=== PATIENT | male | born 1950 | race Caucasian/White ===

== ENCOUNTER → 2018-12-03 07:03 | Outpatient (CLI) | payer MEDICARE, OTHER, SELFPAY ==
[2018-12-03 08:24] LABS: Alanine Aminotransferase 73 IU/L (21-72); Albumin 4.2 g/dL (3.5-5.0); Albumin Globulin Ratio 1.4 (1.0-2.8); Alkaline Phosphatase 86 U/L (38-126); Aspartate Aminotransferase 59 IU/L (17-59); Bilirubin Total 0.3 mg/dL (0.2-1.3); Blood Urea Nitrogen 24 mg/dL (9-20); Carbon Dioxide 27 mmol/L (22-32); Chloride 103 mmol/L (98-107); Estimated Glomerular Filt Rate > 60.0 mL/min (>60); Globulin 2.9 g/dL (1.7-4.1); Glucose 110 mg/dL (80-110); HDL Cholesterol 53 mg/dL (40-60); HEMOLYSIS < 15 (0-50); Potassium 4.7 mmol/L (3.4-5.1); Sodium 141 mmol/L (137-145); Total Protein 7.1 g/dL (6.3-8.2); Triglycerides 90 mg/dL (35-150)
[2018-12-03 08:35] LABS: Cholesterol 411 mg/dL (140-199); LDL Cholesterol Calculated 340 mg/dL (<100)
== END ==
PROVIDERS: PCP Family Medicine; Visit Provider Family Medicine
DX: E78.5 Hyperlipidemia, unspecified (principal); Z79.899 Other long term (current) drug therapy; Z12.5 Encounter for screening for malignant neoplasm of prostate; N40.0 Benign prostatic hyperplasia without lower urinary tract symptoms
CPT/HCPCS: 36415; 80053; 80061; 84153

== ENCOUNTER → 2018-12-09 14:57 | Outpatient (CLI) | payer MEDICARE, OTHER, SELFPAY ==
--- NOTE | 2018-12-09 15:05 | DI.ECHO.S_ITS ---
[facility] +---------+ : : [address] : [address] : : : : [place], : : : : [place] [id number] : : : : Phone: [phone] Echocardiogram Report + + :Name: JASKARAN DAVISON Study Date: 12/09/2018 Height: 70 in : :[facility] Exam Location: [facility] Weight: 213 lb: : Gender: Male BSA: 2.1 m2 : :: 1950 Age: 68 yrs BP: 15/75 mmHg: :Reason For Study: Murmur : :Ordering Physician: Dr. Chandler : :Huseyin Performed By: Francia Page : + + Interpretation Summary The left ventricle is normal in size, wall thickness, and systolic function without any focal wall motion abnormalities. The ejection fraction is estimated to be 65-70%. Diastolic parameters suggest a relaxation abnormality of the left ventricle, consistent with probable normal filling pressures. The right ventricle is normal in size and function. Pulmonary artery pressures cannot be estimated because of the lack of a measurable TR jet velocity. Both atria are normal in size. There is mild aortic regurgitation. There is no other significant valvular heart disease. The ascending aorta is mildly enlarged. Procedure: A two-dimensional transthoracic echocardiogram with color flow and Doppler was performed. The study quality was technically adequate. There is no prior echocardiogram noted for this patient. The patient was in normal sinus rhythm during the exam. Left Ventricle: The left ventricle is normal in size, wall thickness, and systolic function without any focal wall motion abnormalities. The ejection fraction is estimated to be 65-70%. Diastolic parameters suggest a relaxation abnormality of the left ventricle, consistent with probable normal filling pressures. Right Ventricle: The right ventricle is normal in size and function. Atria: Both atria are normal in size. There is no Doppler evidence for an interatrial shunt. Mitral Valve: The mitral valve is normal in structure and function. There is trace mitral regurgitation. Aortic Valve: The aortic valve is trileaflet. The aortic valve opens well. There is mild aortic regurgitation. Tricuspid Valve: The tricuspid valve is normal in structure and function. There is a trace or physiologic amount of tricuspid regurgitation. Pulmonary artery pressures cannot be estimated because of the lack of a measurable TR jet velocity. Pulmonic Valve: The pulmonic valve is not well visualized. There is a trace or physiologic amount of pulmonic regurgitation. There is no other significant valvular heart disease. Great Vessels: The aortic root is normal size. The ascending aorta is mildly enlarged. The pulmonary is not well visualized. The IVC is of normal diameter and collapses greater than 50% with a sniff. This suggests a low right atrial pressure of 3 mm Hg. Pericardium/ Pleura There is no pericardial effusion. There is no pleural effusion. MMode/2D Measurements & Calculations LVIDd: 4.1 cm AoV Openin.9 cm LVIDs: 2.7 cm LVOT diam: 2.3 cm IVSd: 1.0 cm Ao root diam: 3.6 cm LVPWd: 0.91 cm asc Aorta Diam: 3.6 cm LV knowles. diameter/BSA (cm/m^2): 1.9 LV sys. diameter/BSA (cm/m^2): 1.3 FS: 34.5 % EPSS: 0.06 cm LA A2 area: 20.2 cm2 RA long axis: 4.9 cm LA A4 area: 19.3 cm2 RA area: 17.3 cm2 LA length (vol): 5.3 cm RA vol: 51.7 ml LA vol: 62.7 ml RA : 24.1 ml/m2 LA vol index: 29.2 ml/m2 RVD1 (basal): 3.4 cm Doppler Measurements & Calculations Ao V2 max: 188.9 cm/sec LVOT Max Kuldeep: 96.5 cm/sec Ao V2 mean: 130.0 cm/sec LV V1 max P.7 mmHg Ao V2 VTI: 31.0 cm LV V1 VTI: 18.3 cm Ao max P.3 mmHg Ao mean P.6 mmHg JESSICA(I,D): 2.5 cm2 AI P1/2t: 556.4 msec JESSICA(V,D): 2.2 cm2 AI dec slope: 183.1 cm/sec2 JESSICA indexed to BSA (cm^2/m^2): 1.2 sev ratio: 0.59 MV E max kuldeep: 71.9 cm/sec MV dec time: 0.21 sec MV A max kuldeep: 83.0 cm/sec MV P1/2t: 60.2 msec MV E/A: 0.87 MVA(P1/2t): 3.7 cm2 Med Peak E' Kuldeep: 4.4 cm/sec E/E' med: 16.2 Lat Peak E' Kuldeep: 6.8 cm/sec E/E' lat: 10.6 E/e' average: 13.4 PA V2 max: 80.2 cm/sec SV(LVOT): 78.0 ml PA V2 mean: 53.8 cm/sec PA mean P.3 mmHg PA Accel Time: 0.12 sec Reading Physician:SHIRA
== END ==
PROVIDERS: PCP Family Medicine; Visit Provider Family Medicine
DX: I35.1 Nonrheumatic aortic (valve) insufficiency (principal); I77.810 Thoracic aortic ectasia; R01.1 Cardiac murmur, unspecified
CPT/HCPCS: 93306

== ENCOUNTER → 2019-02-15 07:50 | Outpatient (CLI) | payer MEDICARE, OTHER, SELFPAY ==
[2019-02-15 10:46] LABS: Triglycerides 106 mg/dL (35-150)
[2019-02-15 10:53] LABS: Cholesterol 337 mg/dL (140-199); HDL Cholesterol 50 mg/dL (40-60); LDL Cholesterol Calculated 266 mg/dL (<100)
== END ==
PROVIDERS: PCP Family Medicine; Visit Provider Family Medicine
DX: E78.2 Mixed hyperlipidemia (principal)
CPT/HCPCS: 36415; 80061

== ENCOUNTER → 2019-07-14 07:12 | Outpatient (CLI) | payer MEDICARE, OTHER, SELFPAY ==
[2019-07-14 08:36] LABS: Cholesterol 313 mg/dL (140-199); HDL Cholesterol 53 mg/dL (40-60); LDL Cholesterol Calculated 238 mg/dL (<100); Triglycerides 110 mg/dL (35-150)
== END ==
PROVIDERS: PCP Family Medicine; Visit Provider Family Medicine
DX: E78.2 Mixed hyperlipidemia (principal)
CPT/HCPCS: 36415; 80061

== ENCOUNTER → 2019-10-26 07:22 | Outpatient (CLI) | payer MEDICARE, OTHER, SELFPAY ==
[2019-10-26 08:15] LABS: Alanine Aminotransferase 27 IU/L (<50); Albumin 4.1 g/dL (3.5-5.0); Albumin Globulin Ratio 1.6 (1.0-2.8); Alkaline Phosphatase 54 U/L (38-126); Aspartate Aminotransferase 33 IU/L (17-59); Bilirubin Total 0.5 mg/dL (0.2-1.3); Bilirubin Unconjugated 0.3 mg/dL (0.0-1.1); Cholesterol 244 mg/dL (140-199); Globulin 2.6 g/dL (1.7-4.1); HDL Cholesterol 49 mg/dL (40-60); HEMOLYSIS < 15 (0-50); LDL Cholesterol Calculated 183 mg/dL (<100); Total Protein 6.7 g/dL (6.3-8.2); Triglycerides 58 mg/dL (35-150)
== END ==
PROVIDERS: Family Provider Family Medicine; PCP Family Medicine; Visit Provider Nurse Practitioner
DX: Z51.81 Encounter for therapeutic drug level monitoring (principal); T50.905A Adverse effect of unspecified drugs, medicaments and biological substances, initial encounter; E78.2 Mixed hyperlipidemia
CPT/HCPCS: 36415; 80061; 80076

== ENCOUNTER → 2019-12-24 07:18 | Outpatient (CLI) | payer MEDICARE, OTHER, SELFPAY ==
[2019-12-24 08:06] LABS: Add Manual Diff / Slide Review NO; Basophils Absolute Auto 0 /uL (0-100); Basophils Percent Auto 0.8 % (0-2); Eosinophils Absolute Auto 200 /uL (0-450); Eosinophils Percent Auto 3.6 % (2-4); Hematocrit 44.3 % (41-53); Hemoglobin 14.9 g/dL (13.5-17.5); Lymphocytes Absolute Auto 1700 /uL (1100-4500); Lymphocytes Percent Auto 31.5 % (25-40); Mean Corpuscular HGB Conc 33.6 % (30-36); Mean Corpuscular Hemoglobin 30.6 PG (26-34); Mean Corpuscular Volume 90.8 fL (80-100); Monocytes Absolute Auto 600 /uL (0-900); Monocytes Percent Auto 11.7 % (3-14); Neutrophils Absolute Auto 2800 /uL (1500-7000); Neutrophils Percent Auto 52.4 % (50-75); Platelet Count 230 X10^3/uL (150-400); Red Blood Cell Count 4.88 X10^6/uL (4.5-5.9); Red Cell Distribution Width 13.6 % (11.6-14.8); White Blood Cell Count 5.3 X10^3/uL (4.5-11.0)
[2019-12-24 08:32] LABS: Alanine Aminotransferase 25 IU/L (<50); Albumin 4.4 g/dL (3.5-5.0); Albumin Globulin Ratio 1.6 (1.0-2.8); Alkaline Phosphatase 57 U/L (38-126); Aspartate Aminotransferase 28 IU/L (17-59); BUN Creatinine Ratio 25.6 (6-22); Bilirubin Total 0.5 mg/dL (0.2-1.3); Blood Urea Nitrogen 23 mg/dL (9-20); Calcium 9.7 mg/dL (8.4-10.2); Carbon Dioxide 27 mmol/L (22-32); Chloride 104 mmol/L (98-107); Cholesterol 267 mg/dL (140-199); Estimated Glomerular Filt Rate > 60.0 mL/min (>60); Globulin 2.7 g/dL (1.7-4.1); Glucose 112 mg/dL (80-110); HDL Cholesterol 45 mg/dL (40-60); HEMOLYSIS < 15 (0-50); LDL Cholesterol Calculated 205 mg/dL (<100); Potassium 4.3 mmol/L (3.4-5.1); Sodium 141 mmol/L (137-145); Total Protein 7.1 g/dL (6.3-8.2); Triglycerides 85 mg/dL (35-150)
[2019-12-24 09:02] LABS: Prostate Specific Antigen Scrn 1.99 ng/mL (0.1-4.0)
== END ==
PROVIDERS: PCP Family Medicine; Visit Provider Family Medicine
DX: E78.2 Mixed hyperlipidemia (principal); Z12.5 Encounter for screening for malignant neoplasm of prostate
CPT/HCPCS: 36415; 80053; 80061; 85025; G0103

== ENCOUNTER → 2020-06-25 09:15 | Outpatient (CLI) | payer MEDICARE, OTHER, SELFPAY ==
[2020-06-27 13:43] LABS: COVID19 Sendout Not Detected (Not Detect)
== END ==
PROVIDERS: PCP Family Medicine; Visit Provider Physician Assistant
DX: Z01.818 Encounter for other preprocedural examination (principal)
CPT/HCPCS: 87635

== ENCOUNTER 2020-06-28 08:06 | Day surgery (SDC) | payer MEDICARE, OTHER, SELFPAY ==
[2020-06-26 14:51] VITALS: BMI 31.8
[2020-06-28] VITALS (7 sets, daily range): BP systolic 104–125; BP diastolic 59–74; PULSE 62–80; RESP 14–17; TEMP 36.1–36.5; O2SAT 97–100; BMI 30.4
--- NOTE | 2020-06-28 | PATH_ITS ---
[facility] Accession Number: [id number] . 01 Material submitted: . leg - LEFT LEG CHRONIC WOUND . 01 Clinical history: . A: LEFT LEG CHRONIC WOUND/ RECURRENT DERMATOFIBROMA SINGLE STITCH SUPERIOR DOUBLE STITCH POSTERIOR . 01 Diagnosis: Skin and Subcutis, Left Leg, Excision: Scar. Negative for residual dermatofibroma. Negative for malignancy. V 07/03/2020 1636 Local . 01 Comment: This case is also reviewed by dermatopathologist, Dr. Bala Palencia, who concurs with the given interpretation. . . . . 01 Electronically signed: . Thelma Berry MD, Pathologist NPI- [id number] . 01 Gross description: . Specimen A is received in formalin, labeled with patient identification and left leg chronic wound/recurrent dermatofibroma, single stitch superior, double stitch posterior. It consists of a 6.3 x 2.0 x 0.6 cm ellipse of yellow-chester and wrinkled skin excisions with a single superior stitch and double posterior stitch (per surgeon). For grossing purposes, superior is designated as 12 o'clock tip and posterior side is designated as 9 o'clock side. A 0.7 x 0.5 cm irregular skin defect is present at 0.2 cm to 3 o'clock side, 1.1 cm to 9 o'clock side, 2.8 cm to 12 o'clock tip, and 3.0 cm to 6 o'clock tip. Ink code: orange-12 to 3 o'clock; blue-3 to 6 o'clock; black-6 to 9 to 12 o'clock. Sectioning reveals white to yellow-chester and smooth cut surfaces. The entire specimen is submitted in six cassettes. . Summary of sections: A1 - 12 o'clock and 6 o'clock tips, two pieces. A2-A6 - the remaining specimen, continuatively submitted from 12 o'clock to 6 o'clock, three pieces each. ([id number]) /MRV 06/29/2020 1334 Local . 01 Pathologist provided ICD-10: D23.9 . 01 CPT . 989719 Performed at: 01 [facility] [address] [place] [address], [place], [place] [id number] MD Ran Hernandez MD Phone: [phone]
[2020-06-28] MEDS: LACTATED RINGERS 1,000 ML 100 ML IV (08:41)
--- NOTE | 2020-06-28 09:36 | PM.PREOP ---
Pre-operative Note COVID-19 COVID-19 status: Negative Result date/Date tested (Pos, Neg/Pending): 06/25/20 Interval Note History & Physical reviewed/Exam performed by Physician: Yes Changes to H&P: No
[2020-06-28] MEDS: CEFAZOLIN 2 GM/100 ML FROZ.PIGGY IV (10:02)
--- NOTE | 2020-06-28 10:12 | SUR.OPER ---
Lateral on padded OR bed, head on pillow, gel axillary roll in place, bottom leg bent with gel pad under knee to foot, upper leg straight and supported with pillows. Upper arm supported by pillows and secured over bottom arm to padded arm board. Safety belt at hip, tape over blanket lower legs. lateral on collier bag
[2020-06-28] MEDS: BUPIVACAINE 0.25% W/ EPI 30 ML VIAL INJ (10:27)
--- NOTE | 2020-06-28 10:48 | P.OP_ITS ---
Operative Date/Time/Diagnoses Date of procedure: 06/28/20 Time of procedure: 10:48 Pre-op diagnosis: recurrent dermatofibroma; non healing chronic wound Post-op diagnosis: same Procedure & Clinicians Procedure: Excision of 2cm x 1cm recurrent dermatofibroma with associated skin for closure 6cm x 2.5 cm Same procedure as scheduled: Yes Indications: This is a 69 yo man who had a hypertrophic mass on his left leg which was biopsied and subsequently excised. Pathology was consistent with dermatofibroma. The hypetrophic mass immediately recurred with an area of central ulceration which continues to reopen and seems to resist healing. Re- biopsy was discussed, vs re-excision. The patient preferred re-excision and this was recommended for healing the chronic wound and full pathology of the recurrent mass. Surgeon: Rona Meyer Click Yes if Unassisted: Yes Anesthesia Type: General Operative Notes Findings: Deep scar with non healing ulcer Closure Type: primary Specimen(s): other (Recurrent dermatofibroma with non healing ulcer; single stitch superior; double stitch posterior; rule out malignancy) Estimated Blood Loss (mL): 1 Blood products transfused: none Procedure in detail: The patient was brought into the OR, identified and positioned on his left side on the OR table with all bony prominences padded. General anesthesia was induced and the patient was intubated with an LMA. The left medial leg was prepped and draped in sterile fashion with the area of the planned excision marked out. Surgical timeout was conducted. Local anesthetic was infiltrated under the skin, and a modified elliptical incision was made encompassing the area of concern with a 1-2mm margin for a total of 6cm x 2.5cm. Dissection was carried down through the dermis and the skin ellipse was dissected free from the underlying subcutaneous fat. There was deep scar tissue at the prior surgical site which was excised with a rim of fat tissue. The entire specimen was excised and marked with single suture at the superior end and double suture at the posterior edge. The wound was infiltrated with a total of 30mL of local anesthetic using 0.25% Marcaine with epi. The skin was closed in layers with interrupted 3-0 Vicryl and running 4-0 Monocryl. The skin was sealed with dermabond and secured with steri strips. At the conclusion of the procedure, needle, sponge and instrument counts were correct x 2. The patient was then awakened from anesthesia and extubated. He was transferred to the PACU in stable condition. Complications: none Post-operative Condition: stable Disposition: PACU
== END 2020-06-28 11:30 | disposition home or self-care (01) ==
PROVIDERS: PCP Family Medicine; Referring Provider Surgery; Visit Provider Surgery
PROC: (CPT 11406; principal; 2020-06-28 09:45)
DX: D23.72 Other benign neoplasm of skin of left lower limb, including hip (principal)
CPT/HCPCS: 11406; J0690; J2405; J2704; J3010

== ENCOUNTER → 2020-07-05 07:04 | Outpatient (CLI) | payer MEDICARE, OTHER, SELFPAY ==
[2020-07-05 08:37] LABS: Cholesterol 263 mg/dL (140-199); HDL Cholesterol 50 mg/dL (40-60); LDL Cholesterol Calculated 185 mg/dL (<100); Triglycerides 141 mg/dL (35-150)
[2020-07-05 08:59] LABS: Prostate Specific Antigen 1.63 ng/mL (0.10-4.00)
== END ==
PROVIDERS: PCP Family Medicine; Referring Provider Physician Assistant; Visit Provider Family Medicine
DX: N40.1 Benign prostatic hyperplasia with lower urinary tract symptoms (principal); E78.2 Mixed hyperlipidemia
CPT/HCPCS: 36415; 80061; 84153

== ENCOUNTER → 2020-12-27 07:00 | Outpatient (CLI) | payer MEDICARE, OTHER, SELFPAY ==
[2020-12-27 08:18] LABS: Add Manual Diff / Slide Review NO; Basophils Absolute Auto 0 /uL (0-100); Basophils Percent Auto 0.9 % (0-2); Eosinophils Absolute Auto 200 /uL (0-450); Hemoglobin 14.1 g/dL (13.5-17.5); Lymphocytes Absolute Auto 1800 /uL (1100-4500); Lymphocytes Percent Auto 33.7 % (25-40); Mean Corpuscular HGB Conc 32.1 % (30-36); Mean Corpuscular Hemoglobin 29.7 PG (26-34); Mean Corpuscular Volume 92.5 fL (80-100); Monocytes Absolute Auto 600 /uL (0-900); Monocytes Percent Auto 11.2 % (3-14); Neutrophils Absolute Auto 2700 /uL (1500-7000); Neutrophils Percent Auto 50.2 % (50-75); Platelet Count 223 X10^3/uL (150-400); Red Blood Cell Count 4.75 X10^6/uL (4.5-5.9); Red Cell Distribution Width 13.7 % (11.6-14.8); White Blood Cell Count 5.3 X10^3/uL (4.5-11.0)
[2020-12-27 08:44] LABS: Alanine Aminotransferase 19 IU/L (<50); Albumin 4.1 g/dL (3.5-5.0); Albumin Globulin Ratio 1.6 (1.0-2.8); Alkaline Phosphatase 53 U/L (38-126); Aspartate Aminotransferase 25 IU/L (17-59); BUN Creatinine Ratio 22.5 (6-22); Bilirubin Total 0.4 mg/dL (0.2-1.3); Blood Urea Nitrogen 20 mg/dL (9-20); Calcium 9.4 mg/dL (8.4-10.2); Carbon Dioxide 31 mmol/L (22-32); Chloride 106 mmol/L (98-107); Cholesterol 260 mg/dL (140-199); Estimated Glomerular Filt Rate > 60.0 mL/min (>60); Globulin 2.6 g/dL (1.7-4.1); Glucose 113 mg/dL (80-110); HDL Cholesterol 54 mg/dL (40-60); HEMOLYSIS < 15 (0-50); LDL Cholesterol Calculated 188 mg/dL (<100); Potassium 4.3 mmol/L (3.4-5.1); Sodium 139 mmol/L (137-145); Total Protein 6.7 g/dL (6.3-8.2); Triglycerides 89 mg/dL (35-150)
[2020-12-27 09:06] LABS: Prostate Specific Antigen Scrn 2.14 ng/mL (0.1-4.0)
[2020-12-27 09:07] LABS: TSH w/ Reflex to FT4 2.91 uIU/mL (0.47-4.68)
== END ==
PROVIDERS: PCP Family Medicine; Referring Provider Family Medicine; Visit Provider Family Medicine
DX: E78.2 Mixed hyperlipidemia (principal); Z12.5 Encounter for screening for malignant neoplasm of prostate; Z13.228 Encounter for screening for other metabolic disorders; Z13.29 Encounter for screening for other suspected endocrine disorder
CPT/HCPCS: 36415; 80053; 80061; 84443; 85025; G0103

== ENCOUNTER → 2021-04-26 08:21 | Outpatient (CLI) | payer MEDICARE, OTHER, SELFPAY | PROVIDERS: Family Provider Family Medicine; PCP Family Medicine; Referring Provider Family Medicine; Visit Provider Family Medicine | DX: G56.91 Unspecified mononeuropathy of right upper limb (principal) | CPT/HCPCS: 95886; 95910 ==

== ENCOUNTER → 2021-09-29 07:59 | Outpatient (CLI) | payer MEDICARE, OTHER, SELFPAY ==
[2021-09-29 09:27] LABS: Alanine Aminotransferase 20 IU/L (<50); Albumin 4.4 g/dL (3.5-5.0); Albumin Globulin Ratio 1.8 (1.0-2.8); Alkaline Phosphatase 58 U/L (38-126); Aspartate Aminotransferase 23 IU/L (17-59); BUN Creatinine Ratio 20.4 (6-22); Bilirubin Total 0.6 mg/dL (0.2-1.3); Blood Urea Nitrogen 22 mg/dL (9-20); Calcium 10.1 mg/dL (8.4-10.2); Carbon Dioxide 31 mmol/L (22-32); Chloride 102 mmol/L (98-107); Cholesterol 270 mg/dL (140-199); Estimated Glomerular Filt Rate > 60.0 mL/min (>60); Globulin 2.4 g/dL (1.7-4.1); Glucose 105 mg/dL (80-110); HDL Cholesterol 52 mg/dL (40-60); HEMOLYSIS < 15 (0-50); LDL Cholesterol Calculated 188 mg/dL (<100); Potassium 5.1 mmol/L (3.4-5.1); Sodium 140 mmol/L (137-145); Total Protein 6.8 g/dL (6.3-8.2); Triglycerides 150 mg/dL (35-150)
[2021-09-29 09:29] LABS: Hemoglobin A1C% w Est Avg Glu 5.7 % (4.0-6.0)
== END ==
PROVIDERS: Family Provider Family Medicine; PCP Family Medicine; Referring Provider Family Medicine; Visit Provider Family Medicine
DX: E78.2 Mixed hyperlipidemia (principal); R73.9 Hyperglycemia, unspecified
CPT/HCPCS: 36415; 80053; 80061; 83036

== ENCOUNTER → 2021-10-12 11:35 | Outpatient (CLI) | payer MEDICARE, OTHER, SELFPAY ==
[2021-10-12] MEDS: COVID-19 VACC #3, MRNA(MOD) 50 MCG/0.25 ML VIAL IM (11:39)
== END ==
PROVIDERS: Family Provider Family Medicine; PCP Family Medicine; Visit Provider Internal Medicine
DX: Z23 Encounter for immunization (principal)
CPT/HCPCS: 0013A; 91301

== ENCOUNTER 2022-05-30 08:30 | Outpatient (RCR) | payer MEDICARE, OTHER, SELFPAY | END 2022-05-30 12:30 | LOC: CAR 08:30 | PROVIDERS: Family Provider Family Medicine; PCP Family Medicine; Referring Provider Internal Medicine Interventional Cardiology; Visit Provider Internal Medicine Interventional Cardiology | DX: I21.4 Non-ST elevation (NSTEMI) myocardial infarction (principal) | CPT/HCPCS: 93798 ==

== ENCOUNTER → 2022-11-28 07:02 | Outpatient (CLI) | payer MEDICARE, OTHER, SELFPAY ==
[2022-11-28 08:16] LABS: Add Manual Diff / Slide Review NO; Basophils Absolute Auto 0 /uL (0-100); Basophils Percent Auto 0.9 % (0-2); Eosinophils Absolute Auto 200 /uL (0-450); Hematocrit 42.8 % (41-53); Hemoglobin 14.4 g/dL (13.5-17.5); Lymphocytes Absolute Auto 1300 /uL (1100-4500); Lymphocytes Percent Auto 27.7 % (25-40); Mean Corpuscular HGB Conc 33.7 % (30-36); Mean Corpuscular Hemoglobin 30.7 PG (26-34); Monocytes Absolute Auto 600 /uL (0-900); Monocytes Percent Auto 11.7 % (3-14); Neutrophils Absolute Auto 2600 /uL (1500-7000); Neutrophils Percent Auto 54.7 % (50-75); Platelet Count 191 X10^3/uL (150-400); Red Cell Distribution Width 13.6 % (11.6-14.8); White Blood Cell Count 4.8 X10^3/uL (4.5-11.0)
[2022-11-28 08:46] LABS: BUN Creatinine Ratio 19.1 (6-22); Blood Urea Nitrogen 18 mg/dL (9-20); Calcium 9.4 mg/dL (8.4-10.2); Carbon Dioxide 28 mmol/L (22-32); Chloride 102 mmol/L (98-107); Cholesterol 227 mg/dL (140-199); Estimated Glomerular Filt Rate > 60 mL/min (>60); Glucose 105 mg/dL (80-110); HDL Cholesterol 59 mg/dL (40-60); HEMOLYSIS < 15 (0-50); LDL Cholesterol Calculated 145 mg/dL (<100); Potassium 4.5 mmol/L (3.4-5.1); Sodium 139 mmol/L (137-145); Triglycerides 114 mg/dL (35-150)
[2022-12-03 13:36] LABS: Lipoprotein (a) 155.8 nmol/L (<75.0)
== END ==
PROVIDERS: Family Provider Family Medicine; PCP Family Medicine; Referring Provider Internal Medicine Cardiovascular Disease; Visit Provider Internal Medicine Cardiovascular Disease
DX: E78.5 Hyperlipidemia, unspecified (principal); I25.10 Atherosclerotic heart disease of native coronary artery without angina pectoris
CPT/HCPCS: 36415; 80048; 80061; 83695; 85025

== ENCOUNTER → 2022-12-06 15:04 | Outpatient (CLI) | payer MEDICARE, OTHER, SELFPAY ==
[2022-12-06 17:47] LABS: Prostate Specific Antigen 1.66 ng/mL (0.10-4.00)
== END ==
PROVIDERS: Family Provider Family Medicine; PCP Family Medicine; Referring Provider Family Medicine; Visit Provider Family Medicine
DX: Z00.00 Encounter for general adult medical examination without abnormal findings (principal); N40.1 Benign prostatic hyperplasia with lower urinary tract symptoms; R39.11 Hesitancy of micturition
CPT/HCPCS: 36415; 84153

== ENCOUNTER → 2023-03-24 06:47 | Outpatient (CLI) | payer MEDICARE, OTHER, SELFPAY ==
[2023-03-24 09:22] LABS: Cholesterol 119 mg/dL (140-199); HDL Cholesterol 58 mg/dL (40-60); LDL Cholesterol Calculated 44 mg/dL (<100); Triglycerides 85 mg/dL (35-150)
== END ==
PROVIDERS: Family Provider Family Medicine; PCP Family Medicine; Referring Provider Internal Medicine Cardiovascular Disease; Visit Provider Internal Medicine Cardiovascular Disease
DX: E78.5 Hyperlipidemia, unspecified (principal)
CPT/HCPCS: 36415; 80061

== ENCOUNTER → 2023-05-28 15:51 | Outpatient (CLI) | payer MEDICARE, OTHER, SELFPAY ==
--- NOTE | 2023-05-28 15:53 | DI.RAD.S_ITS ---
PROCEDURE: XR KNEE RT 3V INDICATIONS: knee pain TECHNIQUE: Three views of the knee were acquired. COMPARISON: None. FINDINGS: Bones: No acute fractures or dislocations. No suspicious bony lesions. There is moderate joint space narrowing at the patellofemoral compartment with subchondral sclerosis, subchondral cystic changes, marginal osteophyte formation. A small suprapatellar enthesophyte is seen. Medial and lateral femorotibial compartment joint spaces are within normal limits. Soft tissues: No joint effusion. No suspicious soft tissue calcifications. IMPRESSION: Moderate patellofemoral osteoarthrosis. Approved by: Julian Locke M.D. on 05/28/2023 at 20:25
== END ==
PROVIDERS: Family Provider Family Medicine; PCP Family Medicine; Referring Provider Nurse Practitioner Family; Visit Provider Nurse Practitioner Family
DX: M17.11 Unilateral primary osteoarthritis, right knee (principal); M25.561 Pain in right knee
CPT/HCPCS: 73562

== ENCOUNTER → 2023-06-25 11:44 | Outpatient (CLI) | payer MEDICARE, OTHER, SELFPAY ==
--- NOTE | 2023-06-25 11:45 | DI.RAD.S_ITS ---
PROCEDURE: XR LUMBAR SPINE MIN 4V INDICATIONS: LOW BACK PAIN TECHNIQUE: 5 views of the lumbar spine were acquired, including bilateral oblique views. COMPARISON: None. FINDINGS: Bones: 5 nonrib-bearing vertebrae are present. There is normal bony alignment. No vertebral body compression fractures. No suspicious bony lesions. Disc space narrowing hypertrophic facet joints present in the lower lumbar spine Soft tissues: Overlying bowel gas pattern is normal. No suspicious soft tissue calcifications. Moderate fecal debris in the right colon Oblique images: No pars defects. IMPRESSION: Degenerative disc disease and arthropathy in the lower lumbar spine. Moderate fecal debris in the right colon Approved by: German Kumar M.D. on 06/25/2023 at 19:38
== END ==
PROVIDERS: Family Provider Family Medicine; PCP Family Medicine; Referring Provider Physical Medicine & Rehabilitation; Visit Provider Physical Medicine & Rehabilitation
DX: M51.36 Other intervertebral disc degeneration, lumbar region (principal); M47.816 Spondylosis without myelopathy or radiculopathy, lumbar region; M54.50 Low back pain, unspecified
CPT/HCPCS: 72110

== ENCOUNTER → 2023-09-25 11:10 | Outpatient (CLI) | payer MEDICARE, OTHER, SELFPAY ==
--- NOTE | 2023-09-25 11:12 | DI.MRI.S_ITS ---
PROCEDURE: MR LUMBAR SPINE WO CON INDICATIONS: Lumbar stenosis left lower extremity radiculopathy TECHNIQUE: Noncontrast sagittal T1 spin echo and T2 fast echo, sagittal STIR, and T2 fast spin echo through the lumbar spine. In cases with scoliosis, additional coronal T2 fast spin echo may be performed. COMPARISON: None. FINDINGS: Image quality: Excellent. Alignment and Curvature: There is normal bony alignment. Bone Marrow: Multilevel reactive endplate changes are present most severe at L5-S1 and L4-5. Spinal Cord: Conus medullaris terminates at the L1 level. Visualized cord demonstrates normal signal and size. Paraspinous Soft Tissues: No paravertebral masses. T12-L1: Disc height is preserved. No canal stenosis. No foraminal stenosis. L1-L2: Mild disc desiccation. Mild facet ligamentum flavum hypertrophy. No canal stenosis. No foraminal stenosis. L2-L3: Moderate facet ligamentum flavum hypertrophy. No canal stenosis. Mild right and moderate left neural foraminal stenosis. L3-L4: Severe disc desiccation and height loss. Broad-based disc bulge. Epidural lipomatosis. Severe facet and ligamentum flavum hypertrophy. Severe canal stenosis. Mild bilateral foraminal stenosis. There is a small posterior focal high-intensity zone present. L4-L5: Severe disc desiccation and height loss. Severe reactive endplate changes. Severe facet ligamentum flavum hypertrophy. Epidural lipomatosis. Severe canal stenosis. Moderate bilateral foraminal stenosis. Small posterior focal high-intensity zone is present. L5-S1: Severe disc desiccation and height loss. Severe reactive endplate changes. Epidural lipomatosis. Severe facet ligamentum flavum hypertrophy. Moderate canal stenosis. Moderate right and severe left foraminal stenosis. IMPRESSION: 1. Disc desiccation and height loss throughout the lumbar spine and reactive endplate changes most severe at L4-5 and L5-S1. 2. Multilevel broad-based disc bulges with facet and ligamentum flavum hypertrophy. These findings in combination with epidural lipomatosis result in severe canal stenosis at L3-4, L4-5, and L5-S1. 3. Posterior annular fibrosis tears at L3-4, L4-5, and L5-S1. 4. Moderate bilateral foraminal stenosis at L4-5, moderate right stenosis at L5-S1 and severe left foraminal stenosis at L5-S1. Dictated by: Aditi Panda M.D. on 09/25/2023 at 12:56 Approved by: Aditi Panda M.D. on 09/25/2023 at 13:02
== END ==
PROVIDERS: Family Provider Family Medicine; PCP Family Medicine; Referring Provider Physical Medicine & Rehabilitation; Visit Provider Physical Medicine & Rehabilitation
DX: M51.16 Intervertebral disc disorders with radiculopathy, lumbar region (principal); M48.061 Spinal stenosis, lumbar region without neurogenic claudication; M48.07 Spinal stenosis, lumbosacral region; M47.26 Other spondylosis with radiculopathy, lumbar region; M47.27 Other spondylosis with radiculopathy, lumbosacral region
CPT/HCPCS: 72148

== ENCOUNTER → 2023-10-29 06:58 | Outpatient (CLI) | payer MEDICARE, OTHER, SELFPAY ==
[2023-10-29 08:02] LABS: Add Manual Diff / Slide Review NO; Basophils Absolute Auto 0 /uL (0-100); Basophils Percent Auto 0.7 % (0-2); Eosinophils Absolute Auto 300 /uL (0-450); Hematocrit 41.9 % (41-53); Lymphocytes Absolute Auto 1600 /uL (1100-4500); Lymphocytes Percent Auto 30.6 % (25-40); Mean Corpuscular HGB Conc 33.5 % (30-36); Mean Corpuscular Volume 92.6 fL (80-100); Monocytes Absolute Auto 600 /uL (0-900); Neutrophils Absolute Auto 2800 /uL (1500-7000); Neutrophils Percent Auto 52.7 % (50-75); Platelet Count 231 X10^3/uL (150-400); Red Blood Cell Count 4.53 X10^6/uL (4.5-5.9); Red Cell Distribution Width 13.5 % (11.6-14.8); White Blood Cell Count 5.3 X10^3/uL (4.5-11.0)
[2023-10-29 08:23] LABS: BUN Creatinine Ratio 28.4 (6-22); Blood Urea Nitrogen 25 mg/dL (9-20); Calcium 10.1 mg/dL (8.4-10.2); Carbon Dioxide 27 mmol/L (22-32); Chloride 104 mmol/L (98-107); Cholesterol 279 mg/dL (140-199); Estimated Glomerular Filt Rate > 60 mL/min (>60); Glucose 108 mg/dL (80-110); HDL Cholesterol 53 mg/dL (40-60); HEMOLYSIS < 15 (0-50); LDL Cholesterol Calculated 199 mg/dL (<100); Potassium 4.8 mmol/L (3.4-5.1); Sodium 138 mmol/L (137-145); Triglycerides 134 mg/dL (35-150)
[2023-11-01 05:13] LABS: Lipoprotein (a) 99.6 nmol/L (<75.0)
== END ==
PROVIDERS: Family Provider Family Medicine; PCP Family Medicine; Referring Provider Internal Medicine Cardiovascular Disease; Visit Provider Internal Medicine Cardiovascular Disease
DX: I25.10 Atherosclerotic heart disease of native coronary artery without angina pectoris (principal); E78.5 Hyperlipidemia, unspecified
CPT/HCPCS: 36415; 80048; 80061; 83695; 85025

== ENCOUNTER → 2023-10-30 08:05 | Outpatient (CLI) | payer MEDICARE, OTHER, SELFPAY | PROVIDERS: Family Provider Family Medicine; PCP Family Medicine; Referring Provider Physical Medicine & Rehabilitation; Visit Provider Physical Medicine & Rehabilitation | DX: R29.898 Other symptoms and signs involving the musculoskeletal system (principal) | CPT/HCPCS: 95886; 95910 ==

== ENCOUNTER 2023-12-02 08:04 | Day surgery (SDC) | payer MEDICARE, OTHER, SELFPAY ==
[2023-12-02 08:31] VITALS: BP 148/88; PULSE 99; RESP 16; TEMP 36.4; O2SAT 98; BMI 30.1
[2023-12-02] MEDS: LACTATED RINGERS 1,000 ML 42 ML IV (08:47)
--- NOTE | 2023-12-02 09:06 | P.HP_ITS ---
History of Present Illness History of Present Illness Date Patient Seen: 12/02/23 Time Patient Seen: 09:06 Chief complaint: SDC Narrative: 73-year-old man personal history of colonic polyps here for screening colonoscopy. Last colonoscopy 10 years ago. No family history of intestinal malignancy. No abdominal concerns today. [facility] Medical History Spinal stenosis, lumbar region with neurogenic claudication Right knee DJD CAD (coronary artery disease) Erectile disorder Right hand weakness Acute pain of right knee Stable angina Plantar wart Hyperglycemia Neuropathy of right upper extremity Well adult exam Vision changes Erectile dysfunction Insomnia MRSA (methicillin resistant Staphylococcus aureus) Dermatofibroma Mixed hyperlipidemia (08/15/16) Kidney stone Surgical History Status post colonoscopy Status post transurethral resection of prostate Family History Brother Hx of CABG Father Heart disease Mother Heart disease High cholesterol Social History marital status: household members: spouse Smoking Status: Never smoker alcohol intake: former substance use type: former substance user and marijuana Meds Home Medications and Allergies Home Medications Medication Instructions Recorded Confirmed Type aspirin 81 mg chewable tablet 1 tab PO DAILY 12/11/21 12/02/23 History carvedilol 3.125 mg tablet 3.125 mg PO DAILY 12/11/21 12/02/23 History nitroglycerin 0.4 mg sublingual 0.4 mg sublingual Q5M PRN chest 12/11/21 12/02/23 Rx tablet pain #30 tabs rosuvastatin 40 mg tablet 40 mg PO DAILY 12/11/21 12/02/23 History tamsulosin 0.4 mg capsule 0.8 mg (2 x 0.4 mg) PO BEDTIME 10/03/22 12/02/23 Rx #180 caps sildenafil 100 mg tablet 100 mg PO DAILY PRN sexual 06/27/23 12/02/23 Rx activity #30 tabs evolocumab 140 mg/mL subcutaneous 140 mg SUBCUT QMONTH 09/17/23 12/02/23 History pen injector (Naye Montenegro) zolpidem 10 mg tablet See Rx Instructions .Route 10/04/23 12/02/23 Rx .COMPLEX #30 tabs celecoxib 200 mg capsule (Celebrex) 200 mg PO DAILY Pain 12/02/23 12/02/23 History Allergies Allergy/AdvReac Type Severity Reaction Status Date / Time No Known Drug Allergies Allergy Verified 09/17/23 08:13 Exam Vital Signs (past 8 hours): - 12/02/23 08:31 Temperature 97.6 F Pulse Rate 99 H Respiratory Rate 16 Blood Pressure 148/88 H Pulse Oximetry 98 Oxygen Delivery Method Room Air Oxygen Delivery Method Room Air Narrative Exam Narrative: General adult man alert oriented no acute distress Chest nonlabored respiration Extremities warm well perfused Assessment & Plan Assessment & Plan narrative: The patient requires colorectal screening and colonoscopy is recommended. Technical details were discussed. Risks, benefits, alternatives explained. Risks including but not limited to myocardial infarction, aspiration, bleeding, pain, missed lesion, incomplete examination, need for further radiographic studies, colonic perforation, and need for major abdominal surgery were discussed. All questions were answered to their satisfaction, and they are in agreement with this plan.
[2023-12-02 09:34] VITALS: BP 93/63; PULSE 83; RESP 22; TEMP 36.7; O2SAT 94
[2023-12-02 09:39] VITALS: BP 104/69; PULSE 75; RESP 21; O2SAT 95
--- NOTE | 2023-12-02 09:40 | P.OP.COLON_ITS ---
Operative Date/Time/Diagnoses Date of procedure: 12/02/23 Time of procedure: 09:40 Pre-op diagnosis: Personal history of colonic polyps Post-op diagnosis: same Procedure & Clinicians Study performed: Colonoscopy Same procedure as scheduled: Yes Indications: Personal history of colonic polyps Colorectal screening Surgeon: Tee Coronado Procedure Notes Procedure in detail: The history and physical was performed/updated and the patient is ASA class is 2. The procedure was discussed in detail with the patient. Potential risks complications including infection, bleeding, missed diagnosis, perforation, need for surgery, and were explained. Their questions were answered and informed consent was obtained. Patient was brought to the procedure room and placed standard monitoring equipment. The patient's vital signs were monitored continuously throughout the entire procedure. Prior to starting time-out was performed. The patient was placed in the left lateral recumbent position. Procedural sedation was administered by anesthesia. Examination began with a thorough inspection of the perianal area there was no evidence of fissures, fistulae, external hemorrhoids or cutaneous malignancy. The colonoscopy scope was then placed into the anal canal and was advanced to the cecum, which was identified by the ileocecal valve, the appendiceal orifice and the confluence of the taenia. The scope was then slowly withdrawn examining colon thoroughly in all directions, irrigating it of any residual stool. The scope was retroflexed within the rectum The patient tolerated the procedure well. They will be discharged once criteria are met. The prep was of good/excellent quality. The withdrawl time was 7 minutes. FINDINGS * No masses or polyps * Diverticulosis of sigmoid colon Specimen(s): none sent Impression: Normal colonoscopy Post-procedure Recommendations: High fiber diet Plan for aftercare: No further colonoscopy necessary unless symptomatic Disposition: same day surgery
[2023-12-02 09:48] VITALS: BP 110/74; PULSE 77; RESP 14; O2SAT 98
[2023-12-02 09:50] VITALS: BP 125/81; PULSE 72; RESP 16; O2SAT 97
== END 2023-12-02 09:51 | disposition home or self-care (01) ==
PROVIDERS: Family Provider Family Medicine; PCP Family Medicine; Referring Provider Surgery; Visit Provider Surgery
PROC: 0DJD8ZZ Inspection of Lower Intestinal Tract, Via Natural or Artificial Opening Endoscopic (ICD-10-PCS; CPT 45378; principal; 2023-12-02 09:15)
DX: Z12.11 Encounter for screening for malignant neoplasm of colon (principal); Z86.010 Personal history of colon polyps; K57.30 Diverticulosis of large intestine without perforation or abscess without bleeding
CPT/HCPCS: G0105; J2704

== ENCOUNTER → 2023-12-05 06:47 | Outpatient (CLI) | payer MEDICARE, OTHER, SELFPAY ==
[2023-12-05 07:59] LABS: Cholesterol 112 mg/dL (140-199); HDL Cholesterol 58 mg/dL (40-60); LDL Cholesterol Calculated 42 mg/dL (<100); Triglycerides 58 mg/dL (35-150)
== END ==
PROVIDERS: Family Provider Family Medicine; PCP Family Medicine; Referring Provider Internal Medicine Cardiovascular Disease; Visit Provider Internal Medicine Cardiovascular Disease
DX: E78.5 Hyperlipidemia, unspecified (principal)
CPT/HCPCS: 36415; 80061

== ENCOUNTER → 2024-01-09 16:52 | Outpatient (CLI) | payer MEDICARE, OTHER, SELFPAY ==
[2024-01-09 17:16] LABS: Add Manual Diff / Slide Review NO; Basophils Absolute Auto 0 /uL (0-100); Basophils Percent Auto 0.6 % (0-2); Eosinophils Absolute Auto 200 /uL (0-450); Eosinophils Percent Auto 2.9 % (2-4); Hematocrit 40.8 % (41-53); Hemoglobin 13.7 g/dL (13.5-17.5); Lymphocytes Absolute Auto 1600 /uL (1100-4500); Lymphocytes Percent Auto 22.7 % (25-40); Mean Corpuscular HGB Conc 33.5 % (30-36); Mean Corpuscular Hemoglobin 30.4 PG (26-34); Mean Corpuscular Volume 90.7 fL (80-100); Monocytes Absolute Auto 800 /uL (0-900); Monocytes Percent Auto 11.2 % (3-14); Neutrophils Absolute Auto 4500 /uL (1500-7000); Neutrophils Percent Auto 62.6 % (50-75); Platelet Count 219 X10^3/uL (150-400); Red Blood Cell Count 4.49 X10^6/uL (4.5-5.9); Red Cell Distribution Width 13.2 % (11.6-14.8); White Blood Cell Count 7.2 X10^3/uL (4.5-11.0)
[2024-01-09 17:33] LABS: BUN Creatinine Ratio 21.6 (6-22); Blood Urea Nitrogen 21 mg/dL (9-20); Carbon Dioxide 29 mmol/L (22-32); Chloride 104 mmol/L (98-107); Cholesterol 131 mg/dL (140-199); Estimated Glomerular Filt Rate > 60 mL/min (>60); Glucose 99 mg/dL (80-110); HDL Cholesterol 64 mg/dL (40-60); HEMOLYSIS < 15 (0-50); LDL Cholesterol Calculated 51 mg/dL (<100); Potassium 4.6 mmol/L (3.4-5.1); Sodium 139 mmol/L (137-145); Triglycerides 79 mg/dL (35-150)
== END ==
PROVIDERS: Family Provider Family Medicine; PCP Family Medicine; Referring Provider Internal Medicine Cardiovascular Disease; Visit Provider Internal Medicine Cardiovascular Disease
DX: I25.10 Atherosclerotic heart disease of native coronary artery without angina pectoris (principal)
CPT/HCPCS: 36415; 80048; 80061; 85025

== ENCOUNTER → 2025-02-17 06:56 | Outpatient (CLI) | payer MEDICARE, OTHER, SELFPAY ==
[2025-02-17 07:53] LABS: Hematocrit 41.7 % (41-53); Hemoglobin 14.1 g/dL (13.5-17.5); Mean Corpuscular HGB Conc 33.8 % (30-36); Mean Corpuscular Hemoglobin 31.1 PG (26-34); Mean Corpuscular Volume 92.1 fL (80-100); Platelet Count 225 X10^3/uL (150-400); Red Blood Cell Count 4.53 X10^6/uL (4.5-5.9); Red Cell Distribution Width 13.6 % (11.6-14.8); White Blood Cell Count 4.3 X10^3/uL (4.5-11.0)
[2025-02-17 08:25] LABS: Alanine Aminotransferase 22 IU/L (<50); Albumin 4.3 g/dL (3.5-5.0); Albumin Globulin Ratio 1.9 (1.0-2.8); Alkaline Phosphatase 57 U/L (38-126); Aspartate Aminotransferase 31 IU/L (17-59); BUN Creatinine Ratio 21.4 (6-22); Bilirubin Total 0.7 mg/dL (0.2-1.3); Blood Urea Nitrogen 22 mg/dL (9-20); Calcium 9.6 mg/dL (8.4-10.2); Carbon Dioxide 26 mmol/L (22-32); Chloride 103 mmol/L (98-107); Cholesterol 124 mg/dL (140-199); Estimated Glomerular Filt Rate > 60 mL/min (>60); Globulin 2.3 g/dL (1.7-4.1); Glucose 102 mg/dL (80-110); HDL Cholesterol 59 mg/dL (40-60); HEMOLYSIS < 15 (0-50); LDL Cholesterol Calculated 49 mg/dL (<100); Potassium 4.6 mmol/L (3.4-5.1); Sodium 137 mmol/L (137-145); Total Protein 6.6 g/dL (6.3-8.2); Triglycerides 82 mg/dL (35-150); Uric Acid 7.1 mg/dL (3.5-8.5)
[2025-02-17 08:53] LABS: Prostate Specific Antigen Scrn 1.65 ng/mL (0.1-4.0)
[2025-02-17 08:54] LABS: TSH w/ Reflex to FT4 2.97 uIU/mL (0.47-4.68)
== END ==
LOC: LAB 06:59
PROVIDERS: Family Provider Family Medicine; PCP Family Medicine; Referring Provider Internal Medicine Cardiovascular Disease; Visit Provider Internal Medicine Cardiovascular Disease
DX: I25.10 Atherosclerotic heart disease of native coronary artery without angina pectoris (principal); Z12.5 Encounter for screening for malignant neoplasm of prostate; E78.5 Hyperlipidemia, unspecified; I35.0 Nonrheumatic aortic (valve) stenosis; N40.0 Benign prostatic hyperplasia without lower urinary tract symptoms; E78.2 Mixed hyperlipidemia; R73.9 Hyperglycemia, unspecified; M54.12 Radiculopathy, cervical region
CPT/HCPCS: 36415; 80053; 80061; 84443; 84550; 85027; G0103

== ENCOUNTER → 2025-05-12 07:02 | Outpatient (CLI) | payer MEDICARE, OTHER, SELFPAY ==
[2025-05-12 08:10] LABS: Add Manual Diff / Slide Review NO; Basophils Absolute Auto 0 /uL (0-100); Basophils Percent Auto 0.8 % (0-2); Eosinophils Absolute Auto 200 /uL (0-450); Eosinophils Percent Auto 3.9 % (2-4); Hematocrit 44.1 % (41-53); Hemoglobin 14.9 g/dL (13.5-17.5); Lymphocytes Absolute Auto 1500 /uL (1100-4500); Lymphocytes Percent Auto 26.6 % (25-40); Mean Corpuscular HGB Conc 33.8 % (30-36); Mean Corpuscular Hemoglobin 31.7 PG (26-34); Mean Corpuscular Volume 93.6 fL (80-100); Monocytes Absolute Auto 600 /uL (0-900); Monocytes Percent Auto 9.7 % (3-14); Neutrophils Absolute Auto 3400 /uL (1500-7000); Platelet Count 220 X10^3/uL (150-400); Red Blood Cell Count 4.71 X10^6/uL (4.5-5.9); Red Cell Distribution Width 13.1 % (11.6-14.8); White Blood Cell Count 5.8 X10^3/uL (4.5-11.0)
[2025-05-12 08:39] LABS: Alanine Aminotransferase 20 IU/L (<50); Albumin 4.4 g/dL (3.5-5.0); Alkaline Phosphatase 59 U/L (38-126); Aspartate Aminotransferase 33 IU/L (17-59); Bilirubin Total 0.6 mg/dL (0.2-1.3); Blood Urea Nitrogen 16 mg/dL (9-20); Calcium 9.9 mg/dL (8.4-10.2); Carbon Dioxide 29 mmol/L (22-32); Chloride 104 mmol/L (98-107); Cholesterol 127 mg/dL (140-199); Estimated Glomerular Filt Rate > 60 mL/min (>60); Globulin 2.2 g/dL (1.7-4.1); Glucose 109 mg/dL (70-99); HDL Cholesterol 65 mg/dL (40-60); HEMOLYSIS < 15 (0-50); LDL Cholesterol Calculated 43 mg/dL (<100); Potassium 5.2 mmol/L (3.4-5.1); Sodium 140 mmol/L (137-145); Total Protein 6.6 g/dL (6.3-8.2); Triglycerides 94 mg/dL (35-150)
[2025-05-12 09:05] LABS: Prostate Specific Antigen Scrn 1.42 ng/mL (0.1-4.0)
== END ==
PROVIDERS: Family Provider Family Medicine; PCP Family Medicine; Referring Provider Family Medicine; Visit Provider Family Medicine
DX: Z12.5 Encounter for screening for malignant neoplasm of prostate (principal); E78.5 Hyperlipidemia, unspecified; I25.10 Atherosclerotic heart disease of native coronary artery without angina pectoris
CPT/HCPCS: 36415; 80053; 80061; 85025; G0103

== ENCOUNTER → 2025-09-19 11:35 | Outpatient (CLI) | payer MEDICARE, OTHER, SELFPAY ==
--- NOTE | 2025-09-19 11:38 | DI.RAD.S_ITS ---
PROCEDURE: XR KNEE LT 3V INDICATIONS: Left knee pain TECHNIQUE: 3 views of the knee were acquired. COMPARISON: [facility], CR, XR KNEE RT 3V, 05/28/2023, 15:50. FINDINGS: Bones: Mild medial joint space narrowing. Moderate patellofemoral joint space narrowing with lateral tilt. No fractures or dislocations. No suspicious bony lesions. Soft tissues: Small joint effusion. Mild vascular calcifications. Well rounded osseous loose body adjacent to medial joint space. IMPRESSION: 1. Ossified loose body may be intra-articular or within a medial popliteal cyst. 2. Mild to moderate osteoarthrosis. Dictated by: [place] GARCIA Interpreted: Julian Locke MD on 09/19/2025 at 12:40 Transcribed by: WANG on 09/19/2025 at 12:43 Approved by: Julian Locke M.D. on 09/20/2025 at 20:39
== END ==
PROVIDERS: PCP Family Medicine; Referring Provider Family Medicine; Visit Provider Family Medicine
DX: M23.42 Loose body in knee, left knee (principal); M17.12 Unilateral primary osteoarthritis, left knee; M25.462 Effusion, left knee; M25.562 Pain in left knee
CPT/HCPCS: 73562

== ENCOUNTER → 2025-11-01 10:55 | Outpatient (CLI) | payer MEDICARE, OTHER, SELFPAY | PROVIDERS: PCP Family Medicine; Visit Provider Family Medicine | DX: R35.1 Nocturia (principal) | CPT/HCPCS: 87086 ==